=== PATIENT | female | born 1990 | race Caucasian/White ===

== ENCOUNTER 2018-09-05 19:00 | Day surgery (SDC) | payer MEDICAID ==
[2018-09-05 19:36] VITALS: BMI 29.2
--- NOTE | 2018-09-06 05:15 | PRG ---
DATE OF SERVICE: 09/06/2018 OB ER ENCOUNTER PRIMARY OB: Unknown. CHIEF COMPLAINT: Pelvic pain. HISTORY OF PRESENT ILLNESS: Patient is a 28-year-old G4, P3 female with an intrauterine at 29 weeks and 6 days, who presents to labor and delivery today with a 2-day history of bilateral lowe r pelvic pains. Patient reports the pain is sharp and shooting down her vaginal canal into her legs. She reports that the pain is exacerbated with activity and movement such as getting out of bed, rol ling in bed, or walking. Patient denies leakage of fluid or vaginal bleeding. The patient denies an y recent illness, fever, fall, headache, chest pain, shortness of breath, nausea, vomiting, diarrhea, constipation. She denies urinary urgency or frequency. PAST MEDICAL HISTORY: Negative. PAST SURGICAL HISTORY: Negative. ALLERGIES: No known drug allergies. MEDICATIONS: vitamins. SOCIAL HISTORY: Denies drug, alcohol, or tobacco use. OB LABORATORY DATA: Unavailable. REVIEW OF SYSTEMS: Per HPI. PHYSICAL EXAMINATION: VITAL SIGNS: Blood pressure 114/62, heart rate of 91, respiratory rate of 20, temperature 98.3. GENERAL: She appears to be in no acute distress. She is alert and oriented, cooperative, and pleasa nt to interact with. HEENT: Normocephalic, atraumatic. CHEST: Clear to auscultation bilaterally. HEART: Regular rate and rhythm. ABDOMEN: Soft, gravid, nontender. Patient has some tenderness to palpation with deviation of the ut erus to the left consistent with her musculoskeletal pains. EXTREMITIES: Nontender, nonedematous. GENITOURINARY: Has been deferred. TOCOMETER: heart tracing performed for pelvic pain. Baseline is noted to be in the 130s with moderate long-term variability, positive accelerations, no decelerations. Tocometer showing some irr itability, but no regular pattern of contractions. ASSESSMENT AND PLAN: Patient is a 28-year-old G4, P3 female with an intrauterine at 29 wee ks and 6 days, who is presenting with pelvic pain consistent with musculoskeletal pains. Patient has been given labor precautions and has been discharged to home. Patient is unsure of the name of the doctors that she has established care with. By history, patient reports that she is seen in the doctor's office for initial OB visit and has a script for labs. Patient will be discharged to [facility]. Encouraged to keep that appointment and follow up as indicated.
== END 2018-09-05 21:25 | disposition home or self-care (01) ==
LOC: L&D/OP 19:00
PROVIDERS: ATTEND Obstetrics & Gynecology
DX: O99.89 Other specified diseases and conditions complicating pregnancy, childbirth and the puerperium (principal); R10.2 Pelvic and perineal pain; Z3A.29 29 weeks gestation of pregnancy
CPT/HCPCS: 99282

== ENCOUNTER 2018-10-14 18:54 | Day surgery (SDC) | payer SELFPAY ==
[2018-10-14 19:40] VITALS: BMI 30.2
--- NOTE | 2018-10-14 20:39 | PDOC.LDHP ---
Labor and Delivery H&P Chief complaint: contractions HPI: Belén presents to L&D with back/abdominal pain similar to a period cramp since 1400 this afternoon. She denies any vaginal bleeding, dysuria, LOF, change in discharge, headache, vision changes or severe abodminal pain. Reports feeling baby move and PO hydrating well. Current gestational age (weeks): 35 (.4) Due date: 11/15/18 Dating criteria: second trimester ultrasound Grav: 4 Para: 3 (one ) OB History Details: hx of pre-E and GDM with previous pregnancies, minimal care Current complications: none Abnormal US findings: No Past Medical History: none Current medications: none Previous surgical history: none Social history: none - Physical Exam Vital signs reviewed and normal: yes General: NAD, resting Heart: RRR Lungs: CTAB Abdomen: NTTP Extremeties: no edema FHT: variability present (accelerations present, no Decels, baseline 150) [place] contractions every: uterine irritability - Vaginal Exam cm dilated: 0 Effacement: 0% Station: -3 - OB Labs Blood type: unknown RH: unknown Antibody Screen: unknown HIV: unknown RPR: unknown HEPSAg: unknown (d) 1 hour GCT: unknown GBS: unknown - Assessment sumit devine volume depletion - Plan -: - PO hydrate - no consistent contractions on strip, reasurring FHTs - DC home with labor precautions <Eliel Patel - Last Filed: 10/14/18 21:32> <Ghanshyam Carmona - Last Filed: 10/14/18 21:46> Allergies/Adverse Reactions: Allergies Allergy/AdvReac Type Severity Reaction Status Date / Time No Known Allergies Allergy Verified 09/05/18 19:31 Attending Addendum - Attending Addendum Date/Time: 10/14/18 3181 I evaluated the patient and discussed the management with Dr. Patel. I agree with the History, Examination, Assessment and Plan. <Ghanshyam Carmona - Last Filed: 10/14/18 21:46>
== END 2018-10-14 21:30 | disposition home health service (06) ==
LOC: L&D/OP 18:54
PROVIDERS: ATTEND Obstetrics & Gynecology
DX: O47.03 False labor before 37 completed weeks of gestation, third trimester (principal); O99.89 Other specified diseases and conditions complicating pregnancy, childbirth and the puerperium; R10.9 Unspecified abdominal pain; M54.9 Dorsalgia, unspecified; O99.283 Endocrine, nutritional and metabolic diseases complicating pregnancy, third trimester; E86.9 Volume depletion, unspecified; Z79.899 Other long term (current) drug therapy; Z3A.35 35 weeks gestation of pregnancy
CPT/HCPCS: 99282

== ENCOUNTER 2018-10-29 23:35 | Day surgery (SDC) | payer SELFPAY ==
[2018-10-30 00:17] VITALS: BP 117/72; TEMP 97.8; BMI 30.2
--- NOTE | 2018-10-30 00:50 | PDOC.FPROB ---
FMR OB H&P: HPI - History of Present Illness Chief Complaint: Swelling and back pain. History of Present Illness: This is a 28 yo at 38.5 by 29.2wk US who presents to L&D with a cc of body swelling and low back pain. She states the body swelling started 3 days ago and has been consistent. She states the swelling is worse in her hands and feet. She denies vision changes but states she has had a mild headache today. She denies dizziness, sob, chest pain, dysuria, or abdominal pain. She reports GERD. She states that her back pain has been ongoing during her and is made better with repositioning. She denies using any medication for the pain. She reports movement and denies LOF, vaginal bleeding, vaginal discharge, or vaginal burning. 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 - Surgical History Sx History: none - Social History Social History: Denies current PEACE - Family History Family History: noncontributory FMR OB H&P: Medications - Current Home Medications: Medication Instructions Recorded Confirmed Type Cephalexin [Keflex] 500 mg PO Q12H #6 cap 10/30/18 Rx Allergies/Adverse Reactions: Allergies Allergy/AdvReac Type Severity Reaction Status Date / Time No Known Allergies Allergy Verified 09/05/18 19:31 FMR OB H&P: ROS - Review of Systems General: denies: fever/chills, weight/appetite/sleep changes, fatigue Eyes: denies: eye pain, vision changes ENT: denies: nasal congestion, rhinorrhea Cardiovascular: reports: edema (In hands and feet). denies: chest pain, palpitation Respiratory: denies: cough, congestion, shortness of breath Gastrointestinal: reports: indigestion, constipation (improved this week). denies: abdominal pain Genitourinary (Female): denies: incontinence, dysuria Musculoskeletal: reports: pain (lower back pain) Neurologic: denies: numbness, syncope Integumentary: denies: itching, rash Psychological: denies: depression, anxiety FMR OB H&P: Vital Signs - Maternal Vital signs: Vital Signs - First Documented Temp Pulse Resp BP 97.8 F 98 16 117/72 10/30/18 00:11 10/30/18 00:11 10/30/18 00:11 10/30/18 00:11 - Heart Tones Baseline: 140 Variability: moderate Acceleration: present Deceleration: absent FMR OB H&P: Physical Exam - Physical Exam General: NAD, awake, alert and oriented HEENT: normocephalic and atraumatic, MMM Neck: trachea midline, no JVD Chest: non-tender to palpation Heart: RRR, normal S1/S2, no murmurs/rubs/gallops, other (Pt has trace edema in upper and lower extremities) General: CTAB, no respiratory distress, good air movement Abdomen: soft, gravid, non-tender, bowel sound present Musculoskeletal: normal gait and station, pulses present, FROM in all four extremities Neurological: no focal deficit Psychiatric: intact recent and remote memory, good judgement and insight - Pelvic Exam SVE: 2/0/-3 FMR OB H&P: A/P - Problem List (1) Third trimester Current Visit: Yes Status: Acute Code(s): Z34.93 - ENCNTR FOR SUPRVSN OF NORMAL PREG, UNSP, THIRD TRIMESTER Disposition: This is a 28 yo at 38.5 by 29.2 wk Third trimester -In the light of pt's normal BPs, Pre-E is not a concern at this point. -Cervical check -Monitor FHTs and monitor for contractions No care -GBS -BPP with growth -CBC -UDS -Bedside glucose check: 80 -RPR Asymptomatic bacturia -UA positive for bacteria -Rocephin 1 gram IM -3 days keflex Discharging pt to home. Her swelling is minimal and BP remains within normal limits. NST is reactive and pt has no contractions. BPP was 8/8, JOHN was 14 and baby was vertex. Pt reports she has an OB appointment on 11/03/[address] Lay. We will inform pt of any abnormal labs or studies. Discussion: Date/Time: 10/30/18 7442 This H&P was discussed with Dr. Damon and Dr. Broderick who agree with the above documentation and plan. Addendum - Attending - Attending Attestation Date/Time: 10/30/18 1116 I personally evaluated the patient and discussed the management with Dr. Andersen I agree with the History, Examination, Assessment and Plan documented above with any addition or exceptions noted below. 28 yo at 38.5 by 29.2wk US presenting for back pain and swelling. Has had only 1 visit. Did not get an anatomy US or 1hr GCT. FOB with syphilis diagnosed during this . RPR negative at this visit. Growth reassuring with nml BPP and S/D ratio. UDS negative. GBS sent today. Reassurance offered that back pain and swelling normal at this point in . No evidence of preeclampia or labor. Anemia of noted on CBC. Needs an iron supplement. Followup scheduled with Dr. Lay.
[2018-10-30 01:42] LABS: Bilirubin Negative (Negative); Blood, Urine Negative (Negative); Clarity CLEAR (Clear); Glucose, Urine (Dipstick) Negative (Negative); Leukocyte Moderate (Negative); Nitrite Negative (Negative); Protein, Urine (Dipstick) Negative (Neg-Trace); Specific Gravity, Urine 1.005 (1.002-1.036); pH, Urine 6.5 (5.0-9.0)
[2018-10-30 01:44] LABS: Bacteria/HPF 1+ HPF (None Seen); Hyaline Casts/LPF 0-3 HYALINE CAST LPF (0-3 Hyaline); RBC/HPF 0-3 HPF (0-3)
[2018-10-30 02:17] LABS: #Eosinphils 0.1 thou/uL (0.0-0.7); #Lymphocytes 2.3 thou/uL (1.20-3.40); #Monocytes 0.6 thou/uL (0.11-0.59); #Neutrophils 7.9 thou/uL (1.40-6.50); %Basophils 0.1 % (0.0-1.0); %Eosinophils 0.8 % (0.0-10.0); %Lymphocytes 21.1 % (21.0-51.0); %Monocytes 5.5 % (0.0-10.0); %Neutrophils 72.4 % (42.0-75.0); Hemoglobin 9.8 g/dL (12.0-16.0); Mean Corpuscular HGB CONC 34.9 g/dL (32.0-36.0); Mean Corpuscular Hemoglobin 29.9 pg (27.0-31.0); Mean Corpuscular Volume 85.6 fL (78.0-98.0); Mean Platelet Volume 8.2 fL (7.4-10.4); Platelet Count 186 thou/uL (130-400); RBC Distribution Width 13.3 % (11.5-14.5); Red Blood Cell (RBC) Count 3.29 mill/uL (4.20-5.40)
[2018-10-30 02:44] LABS: Amphetamine Not Detected (NotDetected); Barbiturates Screen Not Detected (NotDetected); Benzodiazepine Screen Not Detected (NotDetected); Cocaine Metabolite Screen Not Detected (NotDetected); Medtox Control Line Valid? VALID (VALID); Medtox Reader # READER 4; Methadone Not Detected (NotDetected); Methamphetamine Not Detected (NotDetected); Opiate Screen Not Detected (NotDetected); Oxycodone Screen Not Detected (NotDetected); Phencyclidine (PCP) Not Detected (NotDetected); THC/Cannabinoid Screen Not Detected (NotDetected); Tricyclic Screen Not Detected (NotDetected)
[2018-10-30] MEDS ORDERED: cefTRIAXone\\ROCEPHIN 1 GM in Sodium Chloride 0.9% 100 ML IVPB SCH (02:45)
[2018-10-30] MEDS ORDERED: cefTRIAXone\\ROCEPHIN 250 MG VIAL IM SCH (02:45)
[2018-10-30] MEDS ORDERED: cefTRIAXone\\ROCEPHIN 1 GM VIAL IM SCH (03:00)
[2018-10-30 04:21] LABS: Syphilis Antibody Nonreactive (Nonreactive); Syphilis Antibody Index 0.07 S/CO (<1.00 Non-Reactive)
--- NOTE | 2018-10-30 09:39 | ULT ---
PRELIMINARY REPORT/[facility]/EMERGENTY AFTER-HOURS PROCEDURE US After First Trimester, Transabdominal US Doppler Velocimetry of the Umbilical Artery EXAM DATE/TIME: 10/30/2018 2:48 AM CLINICAL HISTORY: 28 years old, female; Pain; Other: Back pain, limited pnc; Gestational age or lmp: 37wks; TECHNIQUE: Real-time transabdominal obstetrical ultrasound of the maternal pelvis and a second or third trimeste r with image documentation. Real-time US Doppler velocimetry of the umbilical artery integrating B-mode two-dimensional vas cular structure, Doppler spectral analysis and color flow Doppler imaging. COMPARISON: No relevant prior studies available. FINDINGS: Transabdominal obstetrical ultrasound was performed. Duplex ultrasound scan with color Doppler flow a nd spectral waveform analysis was also performed for evaluation of umbilical artery flow. Fetus: Single living intrauterine gestation. Heart rate: 131 bpm Presentation: Vertex Placenta: Fundal. No abruption. Amniotic fluid: Normal. JOHN 14.9cm. Anatomy: Visualized anatomy is unremarkable. umbilical artery: Three-vessel cord is noted. Umbilical artery S/D ratio is 2.11. Adequate keen tolic flow is present. BIOMETRICS Gestational age by US: 37w1d JOYCE(AUA): 11/19/2018 JOYCE(LMP): 11/15/2018 EFW: 3305g-62% MATERNAL: Uterus: No myometrial mass. Cervix: Cervix is closed measuring 2.8cm in length. Free fluid: No significant free fluid. IMPRESSION: Single viable intrauterine . No acute findings. Thank you for allowing us to participate in the care of your patient. Dictated and Authenticated by: Jensen Pastor MD 10/30/2018 4:55 AM Central Time ([place] & [place]) FINAL REPORT LIMITED OB ULTRASOUND: Date: 10/30/18 FINDINGS/IMPRESSION: I agree with the preliminary report given by Marcelina. POS: [facility]
--- NOTE | 2018-10-30 09:40 | ULT ---
PRELIMINARY REPORT/[facility]/EMERGENTY AFTER-HOURS PROCEDURE US Biophysical Profile Without Non-Stress Test EXAM DATE/TIME: 10/30/2018 3:18 AM CLINICAL HISTORY: 28 years old, female; Pain; Pain indication: Back pain, limited pnc; TECHNIQUE: US biophysical profile without non-stress testing. COMPARISON: None FINDINGS: Breathin/2 Gross body movements: 2/2 tone: 2/2 Qualitative amniotic fluid: 2/2 IMPRESSION: Biophysical profile score is 8 out of 8. Thank you for allowing us to participate in the care of your patient. Dictated and Authenticated by: Jensen Pastor MD 10/30/2018 4:23 AM Central Time ([place] & [place]) FINAL REPORT ULTRASOUND BIOPHYSICAL PROFILE: Date: 10/30/18 FINDINGS/IMPRESSION: I agree with the preliminary report given by Marcelina. POS: [facility]
== END 2018-10-30 03:55 | disposition home or self-care (01) ==
LOC: L&D/OP 23:35
PROVIDERS: ATTEND Family Medicine
DX: O99.89 Other specified diseases and conditions complicating pregnancy, childbirth and the puerperium (principal); M54.9 Dorsalgia, unspecified; R22.33 Localized swelling, mass and lump, upper limb, bilateral; R22.43 Localized swelling, mass and lump, lower limb, bilateral; R82.71 Bacteriuria; O99.013 Anemia complicating pregnancy, third trimester; D64.9 Anemia, unspecified; Z3A.38 38 weeks gestation of pregnancy
CPT/HCPCS: 36415; 36416; 76815; 76819; 80306; 81003; 81015; 85025; 86780; 87081; 96372; 99285; J0696; J7050

== ENCOUNTER 2018-11-06 19:24 | Day surgery (SDC) | payer SELFPAY ==
[2018-11-06 19:50] VITALS: BP 116/79; TEMP 98.4; BMI 31.8
--- NOTE | 2018-11-06 20:34 | PDOC.FPROB ---
FMR OB H&P: HPI - History of Present Illness Chief Complaint: back pain, vaginal pressure Indentification: 28 yo at 38.5 wk by 29.2wk US History of Present Illness: This is a 28 yo at 38.5 wk by 29.2wk US who presents to L&D with a cc of low back pain and vaginal pressure. Intermittent spaced back pain that is possibly irregular contractions (6 in 2 hr period). Baby moving well, no LOF, pink-tinged vaginal mucous, increased mucous that is light brown. Patient saw Dr. Lay in clinic on and SVE was 350/-2. Primary Care Physician: Alireza FMR OB H&P: Current - Care : 4 Para: 2103 Gestational age: 38.5 Due date: 11/15/18 Dating Criteria: 29.2 wk sono Course/Complications: Poor care, anemia of , UTI in 3rd trimester, significant other diagnosed with syphilis (RPR negative 1 wk ago). - OB Labs Blood type: A RH: positive HIV: negative RPR: negative HepBsAg: negative Rubella: immune Urine drug screen: negative Gonorrhea: negative Chlamydia: negative 1 hour gtt: 121, negative A1c: 5 H&H: 9.8/29.5 on 10/30/18 FMR OB H&P: History - Past Medical History PMH: Hx of meth use - OB History OB History: 1st - pre-eclampsia 2nd - GDM 3rd - born 1 month early, delivered in an ambulance, +UDS for meth, grandmother has custody - CHIEF ADMINISTRATIVE OFFICER History CHIEF ADMINISTRATIVE OFFICER History: none - Surgical History Sx History: none - Social History Social History: Denies alcohol, tobacco, drug use - Family History Family History: non contributory, no genetic diseases known FMR OB H&P: Medications - Current Allergies/Adverse Reactions: Allergies Allergy/AdvReac Type Severity Reaction Status Date / Time No Known Allergies Allergy Verified 09/05/18 19:31 FMR OB H&P: ROS - Review of Systems General: denies: fever/chills, weight/appetite/sleep changes Eyes: denies: eye pain, vision changes ENT: denies: nasal congestion, rhinorrhea, ear pain, sore throat, other (no hearing changes) Cardiovascular: denies: chest pain, palpitation Respiratory: denies: cough, congestion, shortness of breath Gastrointestinal: reports: cramping, vomiting (1 episode vomiting few days prior ). denies: abdominal pain, nausea, diarrhea, constipation, bright red blood Genitourinary (Female): reports: vaginal discharge, contractions (back pain intermittently), vaginal pressure. denies: dysuria, hematuria, vaginal bleeding Musculoskeletal: denies: pain, stiffness, redness, arthritis/arthralgias Neurologic: denies: numbness, weakness, headache Integumentary: denies: rash, lesions Psychological: denies: depression, anxiety FMR OB H&P: Vital Signs - Maternal Vital signs: Vital Signs - First Documented Temp Pulse Resp BP Pulse Ox 98.4 F 104 H 16 116/79 97 11/06/18 19:46 11/06/18 19:46 11/06/18 19:46 11/06/18 19:46 11/06/18 19:46 - Heart Tones Baseline: 160 Variability: moderate Acceleration: present Deceleration: absent [place] contractions every: none FMR OB H&P: Physical Exam - Physical Exam General: NAD, awake, alert and oriented HEENT: normocephalic and atraumatic, PERRLA, EOMI, MMM, conjunctiva clear, oropharynx clear Neck: supple, no LAD Heart: RRR, normal S1/S2, no murmurs/rubs/gallops, pulses present, no edema General: CTAB, no respiratory distress, good air movement, no wheezing Abdomen: soft, gravid, non-tender, bowel sound present Musculoskeletal: FROM in all four extremities, no atrophy Neurological: no focal deficit Skin: no rash, good tugor, capillary refill <2 seconds Lymphatic: no unusual bruising or bleeding, no purpura Psychiatric: intact recent and remote memory, normal mood and affect - Pelvic Exam SVE: /-3 FMR OB H&P: A/P - Problem List (1) tachycardia Status: Acute Code(s): WOI8288 - (2) Anemia affecting Status: Acute Code(s): O99.019 - ANEMIA COMPLICATING , UNSPECIFIED TRIMESTER (3) History of methamphetamine use Status: Chronic Code(s): Z87.898 - PERSONAL HISTORY OF OTHER SPECIFIED CONDITIONS (4) Hx of pre-eclampsia in prior , currently Status: Chronic Code(s): O09.299 - SUPRVSN OF PREG W POOR REPRODCTV OR OBSTET HISTORY, UNSP TRI (5) History of gestational diabetes mellitus (GDM) in prior , currently Status: Chronic Code(s): O09.299 - SUPRVSN OF PREG W POOR REPRODCTV OR OBSTET HISTORY, UNSP TRI; Z86.32 - PERSONAL HISTORY OF GESTATIONAL DIABETES Discussion: Date/Time: 11/06/182033 This is a 28 yo at 38.5 by 29.2wk US who presents to L&D with a cc of body swelling and low back pain. sIUP -SVE unchanged from , now /3 -FHTs: 160, accels present, no decels, no contractions -Some changes in vaginal discharge - VP3 pending -UA pending, if positive will treat -GBS negative -Patient appears volume down (dark urine), will rehydrate -Once tachycardia improves, will discharge with labor precautions tachycardia -Possibly 2/2 to dehydration vs other (mother drank soda and had burger right before coming in) -Will rehydrate orally Anemia of -will start Fe ([facility] in [place]) -Continue PNV Hx of Meth use during Hx of Pre E Hx of GDM -A1C 5, 1 hr GTT negative Hx Syphilis in significant other -during this , she states he was treated -Last week her RPR was negative -States no sexual relations with him since her last visit here Addendum - Attending - Attending Attestation Date/Time: 11/06/18 5044 I personally evaluated the patient and discussed the management with Dr. Willson. I agree with the History, Examination, Assessment and Plan documented above with any addition or exceptions noted below.
[2018-11-06 21:00] LABS: Bilirubin Negative (Negative); Blood, Urine Negative (Negative); Clarity CLEAR (Clear); Glucose, Urine (Dipstick) Negative (Negative); Leukocyte Negative (Negative); Nitrite Negative (Negative); Protein, Urine (Dipstick) Trace mg/dL (Neg-Trace); Specific Gravity, Urine 1.024 (1.002-1.036); pH, Urine 6.5 (5.0-9.0)
--- NOTE | 2018-11-06 22:22 | PDOC.EVN ---
Event Note - Event Note Event Note: Patient's VP3 was positive for kinjal and BV. Kinjal was asx, treating does not effect outcomes, and no treatment was prescribed. Metronidazole BID for 7 days prescribed for BV. UA was negative. Fe 325 mg daily prescribed for anemia of . tachycardia resolved with oral rehydration (FHTs 140s, mod variability, accels present, few intermittent contractions). Patient discharged with labor precautions and told to follow up for routine PNC with Dr. Lay at [facility].
== END 2018-11-06 22:35 | disposition home or self-care (01) ==
LOC: L&D/OP 19:24
PROVIDERS: ATTEND Family Medicine
DX: O99.89 Other specified diseases and conditions complicating pregnancy, childbirth and the puerperium (principal); M54.5 Low back pain; R10.2 Pelvic and perineal pain; O99.013 Anemia complicating pregnancy, third trimester; D64.9 Anemia, unspecified; O23.593 Infection of other part of genital tract in pregnancy, third trimester; B96.89 Other specified bacterial agents as the cause of diseases classified elsewhere; O98.813 Other maternal infectious and parasitic diseases complicating pregnancy, third trimester; B37.49 Other urogenital candidiasis; Z3A.38 38 weeks gestation of pregnancy; Z79.899 Other long term (current) drug therapy; Z86.32 Personal history of gestational diabetes
CPT/HCPCS: 81003; 87480; 87510; 87660; 99284

== ENCOUNTER 2018-11-12 07:37 | Inpatient (IN) | payer MEDICAID, SELFPAY ==
[2018-11-12] MEDS: Lactated Ringer's 1,000 ML IV SCH ×2 (08:05→10:13)
[2018-11-12 08:11] VITALS: BMI 30.7
[2018-11-12] MEDS ORDERED: Butorphanol Tartrate 1 MG/ML VIAL SLOW IVP PRN (08:34)
[2018-11-12] MEDS ORDERED: Promethazine HCl 25 MG/ML VIAL IM PRN ×2 (08:34→09:24)
[2018-11-12] MEDS ORDERED: Ondansetron PF 4 MG/2 ML Vial IVP PRN ×2 (08:34→09:24)
[2018-11-12] MEDS ORDERED: NS / Oxytocin 40 units/1000ml 1,000 ML IV PRN ×2 (08:34→09:52)
[2018-11-12] MEDS ORDERED: Lidocaine 1% (PF) 30 ML VIAL SC PRN (08:34)
[2018-11-12] MEDS ORDERED: Fentanyl 4 mcg/Bup 0.1% Cadd 100 ML ONE (08:37)
[2018-11-12 08:50] LABS: Hemoglobin 10.8 g/dL (12.0-16.0); Mean Corpuscular HGB CONC 33.8 g/dL (32.0-36.0); Mean Corpuscular Volume 82.8 fL (78.0-98.0); Mean Platelet Volume 8.2 fL (7.4-10.4); Platelet Count 230 thou/uL (130-400); RBC Distribution Width 13.8 % (11.5-14.5); Red Blood Cell (RBC) Count 3.87 mill/uL (4.20-5.40); White Blood Cell (WBC) Count 12.6 thou/uL (4.8-10.8)
--- NOTE | 2018-11-12 09:00 | PDOC.LDHP ---
Labor and Delivery H&P HPI: 28 y/o F at 38.6 wga per LMP & 28w US presents with contractions. care was very limited at [facility] with Dr Lay. She was been seen twice there with a normal US with anterior placenta in 11/06. Additional history includes FOB with HepC/syphillis. Questionable history of maternal syphillis this but 2 negative RPR tests and negative Hep C screen. Pt states she had an infection of some kind but did not get any antibiotics. Of note, she had GDM with her 1st and possibly pre-e. Her 3rd was complicated by methamphetamine use, but has reportedly not had any pos UDS this , however CPS is involved with this . Today her contractions started at 2:30am which were painful. No VB, LOF, and she does have pos FM. Denies STEPHENS, Vision changes, Dysuria, vaginal discharge. Past pregnancies: after chart review she "may have had pre-e with her 1st ". Also noted Methamphetamine use during 3rd in 2013. Term 's x3. Dating criteria: last menstrual period, first trimester ultrasound Current complications: other (poor care. paternal HepC) Abnormal US findings: No Current medications: pre- vitamins Previous surgical history: none Allergies/Adverse Reactions: Allergies Allergy/AdvReac Type Severity Reaction Status Date / Time No Known Allergies Allergy Verified 09/05/18 19:31 Social history: drug use (history of), none - Physical Exam Vital signs reviewed and normal: yes General: NAD, resting, breathing through contractions Heart: RRR Lungs: CTAB Abdomen: NTTP Extremeties: trace edema FHT: category 1 - Vaginal Exam cm dilated: 5 Effacement: 50% Station: -3 - OB Labs Blood type: A RH: positive HIV: negative RPR: negative HEPSAg: negative 1 hour GCT: negative GBS: negative Urine drug screen: not done Rubella: immune - Assessment L&D Assessment: term patient in labor - Plan Plan: admit to L&D -: 28 y/o F at 39.4wga admitted for term labor. 1. sIUP - Will admit to L&D, give epidural, and monitor monitoring. Currently category 1 with ctx q2-3 mins, with membranes intact. Epidural pending. Meth positive. Will notify nursery if any abnormal tracings. 2. Paternal history of HepC - 3rdT screen we negative. 3. Possible Syphillis exposure - RPR NR x2 on 3rdT lab. 4. Methamphetamine abuse- CPS to be notified 5. Poor care - Pt live 1 hrs away and could not make many appointments. Addendum - Attending - Attending Attestation Date/Time: 11/12/18 7238 I personally evaluated the patient and discussed the management with Dr. Mitchell I agree with the History, Examination, Assessment and Plan documented above with any addition or exceptions noted below. 28 yo female at 38.6 wks by LMP/28.4 wk sono admitted for active labor. Patient reports painful contractions. Denies LOF and vaginal bleeding. +FM. VS reviewed. Breathing through contractions. Cephalic on exam. EFW 8lbs. SVE /-2. Intact. 1. sIUP in labor: Admit. Routine labs ordered. Cephalic. 8 lbs. Intact. Continuous monitoring. Requesting epidural for pain control. IOB labs reviewed. Incomplete anatomy scan. 1 hour gtt 121. 3T labs incomplete (RPR, Hep C negative. No repeat HIV). GBS negative. Unsure vaccines or pap testing. 2. Incomplete care: Poor PNC and late to care with poor dating. CM consulted. 3. Hx of substance use: UDS on admission positive for meth. CM and CPS to follow. 4. BMI 30 5. Anemia of : Start iron replacement pp 6. hx of 2T bleeding: No reported concerns for abruption. Will evaluate placenta and send for path. 7. hx of GDM: Negative screening this . Future risk present. 8. Exposure to syphilis and hep C: Screening during negative x 3. 9. hx of STI: CT/GC negative this . Along with RPR. No documented history of HSV. Dispo: Admit. Monitor. Will need flu, Tdap if not given. Will need pap pp as indicated. Og
[2018-11-12] MEDS ORDERED: Lactated Ringer's 500 ML IV PRN (09:24)
[2018-11-12] MEDS ORDERED: ePHEDrine/0.9% NaCl/PF SYRINGE 50 mg/10 ml SLOW IVP PRN (09:24)
[2018-11-12] MEDS ORDERED: Eucerin (Mineral Oil/Petrolatum,White) 30 gm Jar TOP PRN (09:24)
[2018-11-12] MEDS ORDERED: diphenhydrAMINE 50 MG/ML VIAL IVP PRN (09:24)
[2018-11-12] MEDS ORDERED: Naloxone HCl 0.4 mg/ml Vial IVP PRN ×2 (09:24)
[2018-11-12 09:26] LABS: Syphilis Antibody Nonreactive (Nonreactive); Syphilis Antibody Index 0.06 S/CO (<1.00 Non-Reactive)
[2018-11-12 09:27] LABS: HBSAg Index 0.15 S/CO (0-0.99); Hep B Surf Ag Non-Reactive S/CO (NonReactive)
[2018-11-12] MEDS ORDERED: Fentanyl 4 mcg/Bupivacaine 0.1% Cassette 100 ML EPIDURAL SCH (09:30)
[2018-11-12] MEDS ORDERED: Communication Order-Pharmacy FS SCH (09:30)
[2018-11-12] MEDS ORDERED: Diphenoxylate HCl/Atropine Tablet PO PRN (09:52)
[2018-11-12] MEDS ORDERED: Ibuprofen 800 MG TAB PO PRN (09:52)
[2018-11-12] MEDS ORDERED: Carboprost 250 MCG/ML AMP IM PRN (09:52)
[2018-11-12] MEDS ORDERED: Acetaminophen/Codeine 30-300mg Tablet PO PRN (09:52)
[2018-11-12] MEDS ORDERED: Misoprostol 200 MCG TAB PR PRN (09:52)
[2018-11-12] MEDS ORDERED: Methylergonovine 0.2 MG/ML VIAL IM PRN (09:52)
[2018-11-12 10:08] LABS: Amphetamine Not Detected (NotDetected); Barbiturates Screen Not Detected (NotDetected); Benzodiazepine Screen Not Detected (NotDetected); Cocaine Metabolite Screen Not Detected (NotDetected); Medtox Control Line Valid? VALID (VALID); Medtox Reader # READER 4; Methadone Not Detected (NotDetected); Methamphetamine Detected (NotDetected); Opiate Screen Not Detected (NotDetected); Oxycodone Screen Not Detected (NotDetected); Phencyclidine (PCP) Not Detected (NotDetected); THC/Cannabinoid Screen Not Detected (NotDetected); Tricyclic Screen Not Detected (NotDetected)
--- NOTE | 2018-11-12 12:31 | PDOC.LDPN ---
Labor & Delivery Progress Note - Subjective Subjective: no concerns, other - Objective Vital signs reviewed and normal: yes General: NAD, breathing through contractions Uterine fundus: non tender Dilation: 8 Station: 0 FHT: category 1 - Assessment (1) Third trimester Code(s): Z34.93 - ENCNTR FOR SUPRVSN OF NORMAL PREG, UNSP, THIRD TRIMESTER Current Visit: No Status: Acute -: 28 y/o at 38.6 wga afmitted for labor. SROM at 11:00. Cat 1 tracing. 8/100/0. BP at goal. Will continue Monitoring. Anticipate vaginal delivery. Of note, pt is methamphetamine positive. Will notify CPS and monitor child. Addendum - Attending - Attending Attestation Date/Time: 11/12/18 9527 I personally evaluated the patient and discussed the management with Dr. Mitchell I agree with the History, Examination, Assessment and Plan documented above with any addition or exceptions noted below. 28 yo female at 38.6 wks by LMP/28.4 wk sono admitted for active labor. VS reviewed. Comfortable with epidural. Cephalic on exam. EFW 8lbs. SVE 8/100/-1. SROM with clear fluid at 11:00. 1. sIUP in labor: Progressing naturally. Cat 1 tracing. SROM with clear fluid at 11:00. Cephalic. 8 lbs. Pain controlled with epidural. IOB labs reviewed. Incomplete anatomy scan. 1 hour gtt 121. 3T labs incomplete (RPR, Hep C negative. No repeat HIV). GBS negative. Unsure vaccines or pap testing. 2. Incomplete care: Poor PNC and late to care with poor dating. CM consulted. 3. Hx of substance use: UDS on admission positive for meth. CM and CPS to follow. Will order drug screening on infant. Monitor for infant withdrawal. 4. BMI 30 5. Anemia of : Start iron replacement pp 6. hx of 2T bleeding: No reported concerns for abruption. Will evaluate placenta and send for path. 7. hx of GDM: Negative screening this . Future risk present. 8. Exposure to syphilis and hep C: Screening during negative x 3. 9. hx of STI: CT/GC negative this . Along with RPR. No documented history of HSV. Dispo: Continue current care. Og
[2018-11-12] MEDS ORDERED: Lidocaine 1% (PF) 30 ML VIAL ONE (12:41)
[2018-11-12] MEDS ORDERED: NS / Oxytocin 40 units/1000ml 1,000 ML ONE (12:41)
[2018-11-12 13:22] LABS: ALT (SGPT) 7 U/L (8-55); AST (SGOT) 16 U/L (5-34); Albumin 3.4 g/dL (3.5-5.0); Alkaline Phosphatase 185 U/L (40-150); Anion Gap 17 mmol/L (10-20); BUN (Urea Nitrogen) 7 mg/dL (7.0-18.7); Bilirubin, Total 0.6 mg/dL (0.2-1.2); Calc. Creatinine Clearance 160 mL/min (70-130); Calcium 9.3 mg/dL (7.8-10.44); Carbon Dioxide 17 mmol/L (22-29); Chloride 104 mmol/L (98-107); Estimated GFR-MDRD Greater than 90; Globulin 3.5 g/dL (2.4-3.5); Glucose 81 mg/dL (70-105); Potassium 4.2 mmol/L (3.5-5.1); Protein, Total 6.9 g/dL (6.0-8.3); Sodium 134 mmol/L (136-145)
[2018-11-12] MEDS ORDERED: NS / Oxytocin 40 units/1000ml 1,000 ML IV SCH (14:31)
[2018-11-12] MEDS ORDERED: Bisacodyl 10 MG SUPP PR PRN (14:31)
[2018-11-12] MEDS ORDERED: Lanolin Ointment 7 GM TUBE TOP PRN (14:31)
[2018-11-12] MEDS ORDERED: Adacel (T-DAP) 0.5 ML SYRINGE IM ONE (14:31)
[2018-11-12] MEDS ORDERED: Milk Of Magnesia 30 ML UDCUP PO PRN (14:31)
[2018-11-12 15:26] LABS: HIV (1/2) Antibody/Antigen Non-Reactive (NonReactive); HIV 1/2 INDEX 0.07 S/CO (<1.00)
[2018-11-12] MEDS: Ibuprofen 800 MG TAB PO SCH (16:05)
[2018-11-12] MEDS ORDERED: Bupivacaine HCl 0.25%/Epi 0.0005/PF 10 ML VIAL FS ONE (17:00)
[2018-11-12] MEDS ORDERED: Bupivacaine 0.25% HCL 30 ML VIAL ONE (17:00)
[2018-11-12] MEDS ORDERED: ePHEDrine/0.9% NaCl/PF SYRINGE 50 mg/10 ml ONE (17:00)
[2018-11-12] MEDS: Ferrous Sulfate 325 MG TAB PO SCH (17:28)
[2018-11-12] MEDS: Acetaminophen 325 MG TAB PO PRN (18:03)
[2018-11-13] MEDS: Ibuprofen 800 MG TAB PO SCH ×4 (00:33→21:57)
[2018-11-13] MEDS: Docusate Calcium (SURFAK) 240 MG CAP PO SCH ×3 (00:36→21:57)
--- NOTE | 2018-11-13 05:42 | PDOC.PP ---
Post Progress Note Post Day #: 1 Subjective: Feeling well, pain well controlled. Voiding. Reported bleeding heavier than a period yesterday, has slowed down this morning to similar of a period. Ambulating. Reports she hasn't eaten yet. Denies shortness of breath, vision changes, edema. PO intake tolerated: no Flatus: no Ambulation: yes Vital Signs (12 hours) Temp Pulse Resp BP Pulse Ox 11/13/18 01:00 98.6 F 64 18 145/60 H 11/12/18 20:10 98.5 F 74 18 108/63 99 11/12/18 20:00 100 11/12/18 17:55 98.7 F 84 18 110/64 98 Weight Weight 71.214 kg - Physical Examination General: NAD Cardiovascular: no m/r/g, RRR Respiratory: clear to auscultation bilaterally, non-labored breathing Abdominal: + bowel sounds, lochia, appropriately TTP Neurological: no gross focal deficits Psychiatric: A&Ox3, normal affect Result Diagrams: 11/13/18 08:11 11/12/18 08:30 Additional Labs: Post Labs Blood Type A POSITIVE 11/12/18 08:30 Hep Bs Antigen Non-Reactive S/CO (NonReactive) 11/12/18 08:30 (1) Normal course Code(s): Z39.2 - ENCOUNTER FOR ROUTINE FOLLOW-UP Status: Acute (2) History of methamphetamine use Code(s): Z87.898 - PERSONAL HISTORY OF OTHER SPECIFIED CONDITIONS Status: Chronic - Assessment/Plan 28yo female delivered TAGA female at 1300 on 11/16/18 at 38.6wks by LMP c/w 28.4wk US sIUP, delivered - Continue routine care - Pain well controlled - Minimal lochia - Received flu and Tdap during 3rd trimester - CPS involved in case Hx of substance use - UDS on admission positive for meth, sending for confirmation - CM consulted - UDS neg, awaiting results of meconium screen Anemia of - Continue Iron Hx of gDM - 1 hr GTT neg 121 Exposure to syphilis and hep C - Screening during negative hx of STI - CT/GC, RPR, HIV negative this - No documented hx of HSV Addendum - Attending - Attending Attestation Date/Time: 11/13/18 1212 I personally evaluated the patient and discussed the management with Dr. Lay. I agree with the History, Examination, Assessment and Plan documented above with any addition or exceptions noted below. 28 yo now female s/p at 38.6 wks on 11/12/18 at 1300 HD#2 PPD#1 Patient doing well. No complications. No acute changes overnight. Lochia mild. Pain controlled. 1. s/p : Continue routine pp care. Will have patient start using breast pump. 2. Incomplete care: Poor PNC and late to care with poor dating. CM consulted. 3. Hx of substance use: UDS on admission positive for meth. CM and CPS to follow. UDS negative. Confirmatory testing sent on urine. Mec pending on infant. Patient denying recent use. 4. BMI 30 5. Anemia of complicated by acute blood loss: Continue iron replacement. 6. hx of 2T bleeding: No reported concerns for abruption. Placenta intact on gross exam. No evidence of abruption. 7. hx of GDM: Negative screening this . Future risk present. 8. Exposure to syphilis and hep C: Screening during negative x 3. 9. hx of STI: CT/GC negative this . Along with RPR. No documented history of HSV. 10. Would like to breast feed. consulted. 11. Contraception: Will continue to discuss Dispo: Continue current care. CPS following. Confirmation drug testing pending. Continue 48 hour monitoring. Og
--- NOTE | 2018-11-13 08:00 | PDOC.OP ---
Operative Note - Operative Note Operative Note: Delivering Physician: Yanni Lay, PGY-1 and Keara Russell, PGY-3 Attending: Dr. Maira Davis MD Procedure: Spontaneous Vaginal Delivery Anesthesia: epidural EBL: 115 ml Pre-op Diagnosis: 1. Term intrauterine in labor 2. Hx of gestational DM 3. Hx of Methamphetamine abuse during 4. Positive for meth on UDS on 11/12/18 5. Anemia of 6. Hx of STI 7. Late to Care 8. Exposure to Hep C and Syphilis in current , neg 3T HIV and RPR Post-op Diagnosis: 1. Term intrauterine , delivered 2. same as above Indications: A 28y/o female presents in active labor Delivery Note: This is 28yo F @ 38.6wks by LMP who delivered a viable female infant at 1300 on 11/12/18 at 1300. Following an uneventful antepartum course, a vigorous female was delivered over an intact perineum in the occipitoanterior position. Anterior Shoulder and then remainder of the body delivered. Nuchal cord x1, easily reducible at the perineum. The head was held down and mouth and nares were bulb suctioned. Cord clamped and cut and cord blood collected. Placenta delivered intact in the Castillo position with a 3 vessel cord noted. Fundal massage was performed and the fundus was firm. The cervix and vagina were inspected and found to be free of lacerations. Infant went to nursery in good condition for routine care. Apgars were 9/9 at 1 & 5 minutes, respectively. Patient tolerated delivery well and went to after routine recovery/care. Addendum - Attending - Attending Attestation Date/Time: 11/12/18 9766 I personally evaluated the patient, participated in the documented procedure and discussed the management with Dr. Lay 28 yo female at 38.6 wks by LMP/28.4 wk sono admitted for active labor now s/p on 11/12/18 at 1300. Normal . Female . No lacerations. APGARs 9/9. QBL 115mL. Positive UDS at admission. Sent for confirmation testing. Patient denies use. CPS and CM to follow. Routine pp care. Og
[2018-11-13 08:20] LABS: Hemoglobin 9.5 g/dL (12.0-16.0); Platelet Count 166 thou/uL (130-400)
[2018-11-13] MEDS: Ferrous Sulfate 325 MG TAB PO SCH ×2 (09:52→17:24)
[2018-11-13 14:00] LABS: Ref Lab Test Ordered METH UR CONF; Reference Lab Name LABCORP
[2018-11-14] MEDS: Ibuprofen 800 MG TAB PO SCH ×2 (05:05→14:14)
--- NOTE | 2018-11-14 07:44 | PDOC.PP ---
Post Progress Note Post Day #: 2 Subjective: Feeling well this morning. Ambulating, tolerating PO intake, reports no pain. Desires to breastfeed. No overnight events. PO intake tolerated: yes Flatus: yes Ambulation: yes Vital Signs (12 hours) Temp Pulse Resp BP Pulse Ox 11/13/18 21:00 98.3 F 82 18 108/66 11/13/18 20:00 100 Weight Weight 71.214 kg - Physical Examination General: NAD Cardiovascular: no m/r/g, RRR Respiratory: clear to auscultation bilaterally, non-labored breathing Abdominal: + bowel sounds, lochia, appropriately TTP Fundus firm & at: below umbilicus Skin: no rash Neurological: no gross focal deficits Psychiatric: A&Ox3, normal affect Result Diagrams: 11/13/18 08:11 11/12/18 08:30 Additional Labs: Post Labs Blood Type A POSITIVE 11/12/18 08:30 Hep Bs Antigen Non-Reactive S/CO (NonReactive) 11/12/18 08:30 (1) Normal course Code(s): Z39.2 - ENCOUNTER FOR ROUTINE FOLLOW-UP Status: Acute (2) History of methamphetamine use Code(s): Z87.898 - PERSONAL HISTORY OF OTHER SPECIFIED CONDITIONS Status: Chronic - Assessment/Plan 28yo female delivered TAGA female at 1300 on 11/16/18 at 38.6wks by LMP c/w 28.4wk US sIUP, delivered - Continue routine care - Pain well controlled - Minimal lochia - CPS involved in case, will see her today Hx of substance use - UDS on admission positive for meth, sending for confirmation - CM consulted - Infant UDS neg, awaiting results of meconium screen Anemia of - Continue Iron Hx of gDM - 1 hr GTT neg 121 Exposure to syphilis and hep C - Screening during negative hx of STI - CT/GC, RPR, HIV negative this - No documented hx of HSV Addendum - Attending - Attending Attestation Date/Time: 11/14/18 1147 I personally evaluated the patient and discussed the management with Dr. Lay. I agree with the History, Examination, Assessment and Plan documented above with any addition or exceptions noted below. 28 yo now female s/p at 38.6 wks on 11/12/18 at 1300 HD#3 PPD#2 Patient doing well. No complications. No acute changes overnight. Lochia mild. Pain controlled. Does not wish to breast fed. 1. s/p : Continue routine pp care. Patient to follow up with [facility] office for breast feeding if changes her mind tomorrow. 2. Incomplete care: Poor PNC and late to care with poor dating. CM consulted. 3. Hx of substance use: UDS on admission positive for meth. CM and CPS to follow. Infant UDS negative. Confirmatory testing sent on maternal urine. Mec pending on . Patient denying recent use. 4. BMI 30 5. Anemia of complicated by acute blood loss: Continue iron replacement. 6. hx of 2T bleeding: No reported concerns for abruption. Placenta intact on gross exam. No evidence of abruption. 7. hx of GDM: Negative screening this . Future risk present. 8. Exposure to syphilis and hep C: Screening during negative x 3. 9. hx of STI: CT/GC negative this . Along with RPR. No documented history of HSV. 10. Would like to breast feed. consulted. Discussed following up with [place] office if changes her mind on breast feeding tomorrow. 11. Contraception: [facility] Dispo: Continue current care. CPS following. Confirmation drug testing pending. Ok to d/c to home. Og
[2018-11-14 07:59] VITALS: BP 105/60; TEMP 98.5
[2018-11-14] MEDS: Docusate Calcium (SURFAK) 240 MG CAP PO SCH (09:31)
[2018-11-14] MEDS: Ferrous Sulfate 325 MG TAB PO SCH (09:31)
[2018-11-14] MEDS: Acetaminophen 325 MG TAB PO PRN (09:34)
== END 2018-11-14 18:25 | disposition home or self-care (01) | DRG 807 ==
LOC: L&D/OP 07:37 → L&D 08:23 → 3SW 16:44
PROVIDERS: ADMIT Student in an Organized Health Care Education/Training Program; ATTEND Family Medicine
PROC: 10E0XZZ Delivery of Products of Conception, External Approach (ICD-10-PCS; principal; 2018-11-12)
DX: O99.324 Drug use complicating childbirth (principal); Z37.0 Single live birth; F15.10 Other stimulant abuse, uncomplicated; O99.02 Anemia complicating childbirth; D64.9 Anemia, unspecified; O76 Abnormality in fetal heart rate and rhythm complicating labor and delivery; O69.81X0 Labor and delivery complicated by cord around neck, without compression, not applicable or unspecified; Z3A.38 38 weeks gestation of pregnancy
CPT/HCPCS: 36415; 51702; 80053; 80306; 85014; 85018; 85027; 85049; 86780; 86850; 86900; 86901; 87340; 87389; 90715; J2001; S0020